=== PATIENT | male | born 1960 | race Two or more races ===

== ENCOUNTER 2017-03-16 18:19 | Emergency (ER) | payer MEDICAID ==
--- NOTE | 2017-03-16 18:52 | ER Document Report ---
ED General - General Chief Complaint: ETOH Abuse Stated Complaint: ETOH, LACERATIONS Time Seen by Provider: 03/16/17 18:33 Mode of Arrival: Stretcher Information source: Patient Notes: 56-year-old man who has a history of cirrhosis, alcohol abuse who is brought in by EMS because he was found wandering with multiple lacerations over his body. The patient states he was walking through an area with a lot of thorn bushes. He denies any assault. He denies any loss of consciousness. He denies any pain. TRAVEL OUTSIDE OF THE [place] IN LAST 30 DAYS: No - HPI Onset: Just prior to arrival Onset/Duration: Sudden Quality of pain: No pain Severity: None Pain Level: Denies Associated symptoms: None Exacerbated by: Denies Relieved by: Denies Similar symptoms previously: No Recently seen / treated by doctor: No - Related Data Allergies/Adverse Reactions: zolpidem Allergy (Intermediate, Verified 10/22/16 09:31) Hallucinations Penicillins Allergy (Verified 10/22/16 09:31) Rash Past Medical History - General Information source: Patient - Social History Smoking Status: Current Every Day Smoker Cigarette use (# per day): Yes Chew tobacco use (# tins/day): No Frequency of alcohol use: Heavy Drug Abuse: None Lives with: Family Family History: Reviewed & Not Pertinent, CAD Patient has suicidal ideation: No Patient has homicidal ideation: No - Past Medical History Cardiac Medical History: Denies: Hx Coronary Artery Disease, Hx Heart Attack, Hx Hypertension Pulmonary Medical History: Denies: Hx Asthma, Hx Bronchitis, Hx COPD, Hx Pneumonia Neurological Medical History: Denies: Hx Cerebrovascular Accident, Hx Seizures Endocrine Medical History: Reports: Hx Diabetes Mellitus Type 2 Renal/ Medical History: Denies: Hx Peritoneal Dialysis GI Medical History: Reports: Hx Cirrhosis, Hx Hepatitis Musculoskeltal Medical History: Denies Hx Arthritis Infectious Medical History: Reports: Hx Hepatitis Past Surgical History: Reports: Hx Orthopedic Surgery - left ankle, and left hand - Immunizations Hx Diphtheria, Pertussis, Tetanus Vaccination: No Review of Systems - Review of Systems Constitutional: denies: Chills, Fever EENT: No symptoms reported Cardiovascular: No symptoms reported Respiratory: No symptoms reported Gastrointestinal: No symptoms reported Genitourinary: No symptoms reported Male Genitourinary: No symptoms reported Musculoskeletal: See HPI Skin: See HPI Hematologic/Lymphatic: No symptoms reported Neurological/Psychological: No symptoms reported Physical Exam - Vital signs Vitals: Temp Pulse Resp BP Pulse Ox 98.2 F 73 12 118/80 89 L 03/16/17 18:27 03/16/17 18:27 03/16/17 18:27 03/16/17 18:27 03/16/17 18:27 Notes: Physical exam: GENERAL: This is a 56-year-old man is alert, there is significant alcohol on his breath. He is answering questions appropriately, but he does appear intoxicated. HEAD: Atraumatic, normocephalic. EYES: Pupils equal round and reactive to light, extraocular movements intact, sclera anicteric, conjunctiva are normal. ENT: TMs normal, nares patent, oropharynx clear without exudates. Moist mucous membranes. NECK: Normal range of motion, supple without lymphadenopathy or JVD. LUNGS: Breath sounds clear to auscultation bilaterally and equal. No wheezes rales or rhonchi. HEART: Regular rate and rhythm without murmurs, rubs or gallops. ABDOMEN: Soft, normoactive bowel sounds. No tenderness to palpation. No guarding, no rebound. No masses appreciated. EXTREMITIES: Normal range of motion, no pitting or edema. No clubbing or cyanosis. NEUROLOGICAL: Cranial nerves II through XII grossly intact. He does appear intoxicated, he is moving all extremities, no focal weakness. PSYCH: Normal mood, normal affect. SKIN: Patient has multiple abrasions to the upper extremities face and lower extremities. The abrasions are most pronounced on the lower extremities below the knee. Course - Re-evaluation Re-evalutation: 03/16/17 21:01 Note: I reviewed the labs with the patient. His alcohol level was not that bad. He is walking around the room without any difficulty. He is going to go home with family. He did have mild hypokalemia and I gave him some potassium. Ultimately I told him he should cut down on his drinking. He does not seem interested in that. His oxygen saturation when he walks around and is in the 90s. He is comfortable breathing and in no distress. 03/16/17 21:01 He is alert and oriented 3 and acting appropriate at this time. He appears competent. - Vital Signs Vital signs: Temp Pulse Resp BP Pulse Ox 98.2 F 73 12 118/80 89 L 03/16/17 18:27 03/16/17 18:27 03/16/17 18:27 03/16/17 18:27 03/16/17 18:27 - Laboratory Result Diagrams: 03/16/17 19:05 03/16/17 19:05 Laboratory results interpreted by me: 03/16/17 03/16/17 03/16/17 19:05 19:05 19:05 RBC 4.15 L Hgb 12.0 L Hct 35.8 L RDW 17.4 H Lymphocytes % 11.0 L Monocytes % 18.0 H Sodium 134.3 L Potassium 3.3 L Carbon Dioxide 15 L Anion Gap 21 H BUN 23 H Creatinine 1.99 H Est GFR ( Amer) 43 L Est GFR (Non-Af Amer) 35 L Calcium 10.3 H Total Bilirubin 3.4 H Direct Bilirubin 1.9 H AST 206 H ALT 118 H Alkaline Phosphatase 196 H Ammonia 34.8 H Total Protein 10.1 H Discharge - Discharge Clinical Impression: Multiple abrasions, Altered level of consciousness Condition: Stable Disposition: HOME, SELF-CARE Additional Instructions: Recommendations: You can apply bacitracin [id number] to the lower extremity abrasions. Keep them clean. As always, recommend you try and stop drinking altogether. Follow-up with Dr. Osullivan. Return to the OR for any problems.
[2017-03-16 19:19] LABS: ABSOLUTE LYMPHOCYTES (AUTO) 0.7 10^3/uL (0.5-4.7); ABSOLUTE MONOCYTES (AUTO) 1.1 10^3/uL (0.1-1.4); ABSOLUTE NEUT (AUTO) 4.4 10^3/uL (1.7-8.2); BASOPHILS % (AUTO) 0.7 % (0-2); EOSINOPHILS % (AUTO) 0.6 % (0-6); HEMATOCRIT 35.8 % (37.9-51.0); HGB HCT DIFFERENCE 0.2; MEAN CORPUSCULAR HEMOGLOBIN 28.9 pg (27.0-33.4); MEAN CORPUSCULAR HGB CONC 33.4 g/dL (32.0-36.0); MEAN CORPUSCULAR VOLUME 86 fl (80-97); RED BLOOD COUNT 4.15 10^6/uL (4.35-5.55); RED CELL DISTRIBUTION WIDTH 17.4 % (11.5-14.0); SEGMENTED NEUTROPHILS % (AUTO) 69.7 % (42-78); WHITE BLOOD COUNT 6.3 10^3/uL (4.0-10.5)
[2017-03-16 19:59] LABS: ALANINE AMINOTRANSFERASE 118 U/L (21-72); ALBUMIN 4.3 g/dL (3.5-5.0); ALCOHOL 80 mg/dL (NONE DETECTED); ALKALINE PHOSPHATASE 196 U/L (38-126); ASPARTATE AMINO TRANSFERASE 206 U/L (17-59); BILIRUBIN,DIRECT 1.9 mg/dL (0.0-0.4); BILIRUBIN,TOTAL 3.4 mg/dL (0.2-1.3); BLOOD UREA NITROGEN 23 mg/dL (7-20); CALCIUM 10.3 mg/dL (8.4-10.2); CARBON DIOXIDE 15 mmol/L (22-30); CHLORIDE 98 mmol/L (98-107); CREATININE RESULT 1.99 mg/dL (0.52-1.25); GLUCOSE 84 mg/dL (75-110); POTASSIUM 3.3 mmol/L (3.6-5.0); TOTAL PROTEIN 10.1 g/dL (6.3-8.2)
--- NOTE | 2017-03-16 19:59 | RADIOLOGY REPORT (SQ) ---
EXAM DESCRIPTION: CT HEAD WITHOUT COMPLETED DATE/TIME: 03/16/2017 7:00 pm REASON FOR STUDY: altered COMPARISON: None. TECHNIQUE: Axial images acquired through the brain without intravenous contrast. Images reviewed wi th bone, brain and subdural windows. Images stored on PACS. All CT scanners at this facility use dose modulation, iterative reconstruction, and/or weight based d osing when appropriate to reduce radiation dose to as low as reasonably achievable (ALARA). [facility]: Dose Right [facility]: CareDose [facility]: Dose Right [facility]: Teradose 4D [facility]: Tamion RADIATION DOSE: Up-to-date CT equipment and radiation dose reduction techniques were employed. CTDIv ol: 64.6 mGy. DLP: 1163 mGy-cm. mGy. LIMITATIONS: None. FINDINGS: VENTRICLES: Normal size and contour. CEREBRUM: No masses. No hemorrhage. No midline shift. Normal panda/white matter differentiation. N o evidence for acute infarction. CEREBELLUM: No masses. No hemorrhage. No alteration of density. No evidence for acute infarction. EXTRAAXIAL SPACES: No fluid collections. No masses. ORBITS AND GLOBE: No intra- or extraconal masses. Normal contour of globe without masses. CALVARIUM: No fracture. PARANASAL SINUSES: No fluid or mucosal thickening. SOFT TISSUES: No mass or hematoma. OTHER: No other significant finding. IMPRESSION: No acute intracranial findings. TECHNICAL DOCUMENTATION: JOB ID: [id number] Quality ID # [id number]: Final reports with documentation of one or more dose reduction techniques (e.g., Au tomated exposure control, adjustment of the mA and/or kV according to patient size, use of iterative reconstruction technique) 2010 [employer]- All Rights Reserved
[2017-03-16 20:29] LABS: SODIUM 134.3 mmol/L (137-145)
[2017-03-16 20:35] LABS: ANION GAP 21 (5-19)
[2017-03-16] MEDS ORDERED: POTASSIUM CHLORIDE 20 MEQ/15 ML UDCUP PO ONE (20:43)
[2017-03-16] MEDS ORDERED: THIAMINE HCL 100 MG TABLET PO ONE (20:44)
[2017-03-16 21:07] VITALS: BP 125/74
== END 2017-03-16 21:11 | disposition home or self-care (01) ==
LOC: ER 18:19
DX: S80.819A Abrasion, unspecified lower leg, initial encounter (principal); S40.819A Abrasion of unspecified upper arm, initial encounter; S00.81XA Abrasion of other part of head, initial encounter; X58.XXXA Exposure to other specified factors, initial encounter; E87.6 Hypokalemia; E11.9 Type 2 diabetes mellitus without complications; R41.82 Altered mental status, unspecified; F17.210 Nicotine dependence, cigarettes, uncomplicated; Z88.8 Allergy status to other drugs, medicaments and biological substances; Z88.0 Allergy status to penicillin
CPT/HCPCS: 99284; 36415; 80307; 82140; 85025; 80053; 70450; J3490 ×2

== ENCOUNTER 2017-05-26 09:08 | Day surgery (SDC) | payer MEDICAID ==
[~2017-05-26 09:08] MED LIST: PROPOFOL INJ 200 MG/20 ML VIAL IV ONE
[2017-05-26 10:23] VITALS: BP 131/84
--- NOTE | 2017-05-26 12:27 | Operative Report ---
Operative Report DATE OF SURGERY: 05/26/17 Operative Report: The risks, benefits and alternatives of the procedure including risks of bleeding, perforation requiring surgery are explained to the patient in detail and informed consent was obtained. Patient was taken back to the endoscopy suite and placed in the left, lateral decubital position. Timeout was called. Propofol medications administered. A rectal examination is done which did not reveal any masses, tears or fissures. An Olympus videoscope was inserted into the patient's rectum. The scope was then carefully advanced all the way to the cecum. The cecum was identified by the usual anatomical landmarks including the ileocecal valve as well as the appendiceal office. Photodocumentation was obtained. Scope was then sequentially pulled back via the various segments of the colon including the ascending colon, hepatic flexure, transverse colon, splenic flexure, descending colon finding to the rectosigmoid portions of the colon. Retroflexion maneuvers performed. PREOPERATIVE DIAGNOSIS: Rectal bleeding POSTOPERATIVE DIAGNOSIS: Mild proctitis noted status post biopsy. Internal hemorrhoids OPERATION: Colonoscopy with biopsy SURGEON: JARRELL WOLFF ANESTHESIA: LMAC TISSUE REMOVED OR ALTERED: Mucosa sample obtained COMPLICATIONS: None. ESTIMATED BLOOD LOSS: None. INTRAOPERATIVE FINDINGS: As noted above. PROCEDURE: Patient tolerated the procedure well. No immediate postprocedure complications are noted. Patient discharged in good condition. Discharge date 05/26/2017. Discharge diet: Regular. Discharge activity: Regular. 2-3 week follow-up to discuss findings. Patient is instructed call the office or proceed to the emergency room should there be any further problems or questions. We will wait on pathology.
== END 2017-05-26 10:25 | disposition home or self-care (01) ==
LOC: END 09:08
PROVIDERS: ATTEND Internal Medicine Gastroenterology
PROC: 0DBP8ZX Excision of Rectum, Via Natural or Artificial Opening Endoscopic, Diagnostic (ICD-10-PCS; principal; 2017-05-26 11:00)
DX: K62.89 Other specified diseases of anus and rectum (principal); K64.4 Residual hemorrhoidal skin tags; K62.5 Hemorrhage of anus and rectum; E11.9 Type 2 diabetes mellitus without complications; I10 Essential (primary) hypertension; E87.6 Hypokalemia; C22.0 Liver cell carcinoma; K74.60 Unspecified cirrhosis of liver; R18.8 Other ascites; Z79.899 Other long term (current) drug therapy
CPT/HCPCS: 45380; 88305 ×2; J2704; 810

== ENCOUNTER 2019-10-05 10:23 | Emergency (ER) | payer MEDICARE, MEDICAID ==
[2019-10-05 10:34] VITALS: BP 154/92
--- NOTE | 2019-10-05 11:17 | ER Document Report ---
ED Medical Screen (RME) - General Chief Complaint: Abdominal Pain Stated Complaint: ABDOMINAL PAIN Time Seen by Provider: 10/05/19 11:07 Primary Care Provider: PENG OSULLIVAN DO [Primary Care Provider] - Follow up as needed Notes: HPI: 59-year-old male with history of liver cancer who follows at [facility] presenting from PCP office Dr. Osullivan for evaluation and possible paracentesis. Patient has noticed increasing swelling of the abdomen over the last 2 weeks. No fever. Patient states he does get chemotherapy but has not had it in 7 months. Patient states that he was told that there were no beds for him to get p aracentesis done today so he was referred into the emergency department with orders I have greeted and performed a rapid initial assessment of this patient. A comprehensive ED assessment and evaluation of the patient, analysis of test results and completion of the medical decision making process will be conducted by additional ED providers PHYSICAL EXAMINATION: GENERAL: Well-appearing, well-nourished and in no acute distress. HEAD: Atraumatic, normocephalic. EYES: sclera anicteric, conjunctiva are normal. ENT: Moist mucous membranes. NECK: Normal range of motion LUNGS: Normal work of breathing HEART: 2+ radial pulses bilaterally ABD: limited by positioning for exam in triage. Minimal generalized tenderness on palpation EXTREMITIES: no pitting or edema. No cyanosis. NEUROLOGICAL: No focal neurological deficits. Moves all extremities spontaneously and on command. PSYCH: Normal mood, normal affect. SKIN: Warm, Dry, normal turgor, no rashes or lesions noted. Discussed with Dr. Russell, Attending. TRAVEL OUTSIDE OF THE [place] IN LAST 30 DAYS: No - Related Data Allergies/Adverse Reactions: zolpidem Allergy (Intermediate, Verified 05/26/17 08:58) Hallucinations Penicillins Allergy (Verified 05/26/17 08:58) Rash Past Medical History - Social History Frequency of alcohol use: None Drug Abuse: None - Past Medical History Cardiac Medical History: Denies: Hx Coronary Artery Disease, Hx Heart Attack, Hx Hypertension Pulmonary Medical History: Denies: Hx Asthma, Hx Bronchitis, Hx COPD, Hx Pneumonia Neurological Medical History: Denies: Hx Cerebrovascular Accident, Hx Seizures Endocrine Medical History: Reports: Hx Diabetes Mellitus Type 2 Renal/ Medical History: Denies: Hx Peritoneal Dialysis GI Medical History: Reports: Hx Cirrhosis, Hx Hepatitis Musculoskeltal Medical History: Denies Hx Arthritis Infectious Medical History: Reports: Hx Hepatitis Past Surgical History: Reports: Hx Orthopedic Surgery - left ankle, and left hand - Immunizations Hx Diphtheria, Pertussis, Tetanus Vaccination: No Physical Exam - Vital signs Vitals: Temp Pulse Resp BP Pulse Ox 98.2 F 70 16 154/92 H 99 10/05/19 10:33 10/05/19 10:33 10/05/19 10:33 10/05/19 10:33 10/05/19 10:33 Course - Vital Signs Vital signs: Temp Pulse Resp BP Pulse Ox 98.2 F 70 16 154/92 H 99 10/05/19 10:33 10/05/19 10:33 10/05/19 10:33 10/05/19 10:33 10/05/19 10:33 Doctor's Discharge - Discharge Referrals: PENG OSULLIVAN DO [Primary Care Provider] - Follow up as needed
[2019-10-05 12:32] LABS: INTERNATIONAL RATION (INR) 1.52; PARTIAL THROMBOPLASTIN TIME 33.8 SEC (23.5-35.8); PROTHROMBIN TIME 18.4 SEC (11.4-15.4)
[2019-10-05 12:42] LABS: ALBUMIN 2.9 g/dL (3.5-5.0); ALKALINE PHOSPHATASE 134 U/L (38-126); ANION GAP 7 (5-19); ASPARTATE AMINO TRANSFERASE 62 U/L (17-59); BILIRUBIN,DIRECT 0.4 mg/dL (0.0-0.4); BILIRUBIN,TOTAL 1.9 mg/dL (0.2-1.3); BLOOD UREA NITROGEN 15 mg/dL (7-20); CALCIUM 8.1 mg/dL (8.4-10.2); CARBON DIOXIDE 28 mmol/L (22-30); CHLORIDE 103 mmol/L (98-107); GLUCOSE 115 mg/dL (75-110); POTASSIUM 3.8 mmol/L (3.6-5.0); TOTAL PROTEIN 7.7 g/dL (6.3-8.2)
== END 2019-10-05 12:21 | disposition other institution (70) ==
LOC: ER 10:23
DX: R10.9 Unspecified abdominal pain (principal); C22.8 Malignant neoplasm of liver, primary, unspecified as to type; E11.9 Type 2 diabetes mellitus without complications; Z88.0 Allergy status to penicillin
CPT/HCPCS: 36415; 80053; 85610; 85730

== ENCOUNTER 2019-10-06 08:53 | Day surgery (SDC) | payer MEDICARE, MEDICAID ==
[~2019-10-06 08:53] MED LIST changes: +ALBUMIN HUMAN 25 GM/100 ML RTUINJ IV PRN; -PROPOFOL INJ 200 MG/20 ML VIAL IV ONE
[2019-10-06 09:48] LABS: HEMATOCRIT 25.9 % (37.9-51.0); HEMOGLOBIN 8.6 g/dL (13.5-17.0); MEAN CORPUSCULAR HEMOGLOBIN 29.8 pg (27.0-33.4); MEAN CORPUSCULAR VOLUME 90 fl (80-97); RED BLOOD COUNT 2.87 10^6/uL (4.35-5.55); RED CELL DISTRIBUTION WIDTH 17.6 % (11.5-14.0); WHITE BLOOD COUNT 2.3 10^3/uL (4.0-10.5)
[2019-10-06 10:13] LABS: PLATELET COUNT 75 10^3/uL (150-450)
--- NOTE | 2019-10-06 12:58 | RADIOLOGY REPORT (SQ) ---
EXAM DESCRIPTION: U/S ABD PARACENTESIS COMPLETED DATE/TIME: 10/06/2019 12:50 pm REASON FOR STUDY: ASCITES COMPARISON 06/05/2016 LIMITATIONS: None. PROCEDURE: After obtaining informed consent, the patient was brought to the ultrasound suite. The p rocedure was performed with the patient on a gurney. Ultrasound was used to identify a prominent poc ket of ascites in the right lower quadrant. An appropriate access site was selected. The patient wa s prepped and draped in usual sterile fashion. The access site was anesthetized with 10 mL 1% lidoc rodrick. A Mptg-O-Iejltuke needle was advanced into the fluid. After aspiration of fluid the needle, t he catheter was advanced off the needle into the fluid. A total of 2,200 mL of clear, straw-colored fluid was removed. The patient tolerated the procedure well left the department in satisfactory condi tion. IMPRESSION: Successful ultrasound-guided paracentesis COMMENT: Patient medication list reviewed: Yes- Quality ID# [id number]:Eligible professional attests to doc umenting in the medical record they obtained, updated, or reviewed the patient's current medications. TECHNICAL DOCUMENTATION: JOB ID: [id number] 2010 [employer]- All Rights Reserved Reading location - IP/workstation name: [email or web address]
[2019-10-06 13:22] VITALS: BP 148/90
== END 2019-10-06 13:15 | disposition home or self-care (01) ==
LOC: RAD 08:53
PROVIDERS: ATTEND Family Medicine
DX: Z79.899 Other long term (current) drug therapy (principal); R18.8 Other ascites; Z88.0 Allergy status to penicillin
CPT/HCPCS: 36415; 85027; 49083; P9047

== ENCOUNTER 2020-03-01 09:03 | Inpatient (IN) | payer MEDICARE, MEDICAID ==
[2020-03-01] MEDS ORDERED: ONDANSETRON HCL INJ/PF 4 MG/2 ML SDV IV ONE (09:44)
[2020-03-01] MEDS ORDERED: MORPHINE SULFATE 10 MG/ML INJ IV ONE (09:44)
[2020-03-01 10:19] LABS: HEMATOCRIT 22.9 % (37.9-51.0); MEAN CORPUSCULAR HEMOGLOBIN 31.2 pg (27.0-33.4); MEAN CORPUSCULAR HGB CONC 33.9 g/dL (32.0-36.0); MEAN CORPUSCULAR VOLUME 92 fl (80-97); PLATELET COUNT 168 10^3/uL (150-450); RED BLOOD COUNT 2.49 10^6/uL (4.35-5.55); RED CELL DISTRIBUTION WIDTH 19.4 % (11.5-14.0); WHITE BLOOD COUNT 7.6 10^3/uL (4.0-10.5)
[2020-03-01 10:24] LABS: APPEARANCE,URINE SLIGHTLY-CLOUDY; BILIRUBIN,URINE NEGATIVE (NEGATIVE); COLOR,URINE AMBER; GLUCOSE, URINE NEGATIVE (NEGATIVE); KETONES,URINE NEGATIVE (NEGATIVE); LEUKOCYTE ESTERASE,URINE LARGE (NEGATIVE); NITRITE,URINE NEGATIVE (NEGATIVE); PROTEIN,URINE NEGATIVE (NEGATIVE)
[2020-03-01 10:59] LABS: HEMOGLOBIN 7.8 g/dL (13.5-17.0)
[2020-03-01 11:00] LABS: ABSOLUTE LYMPHOCYTES# (MANUAL) 0.6 10^3/uL (0.5-4.7); ABSOLUTE MONOCYTES # (MANUAL) 0.4 10^3/uL (0.1-1.4); BASOPHILS % (MANUAL) 0 % (0-2); EOSINOPHILS % (MANUAL) 3 % (0-6); LYMPHOCYTES % (MANUAL) 8 % (13-45); MONOCYTES % (MANUAL) 5 % (3-13); SEGMENTED NEUTROPHILS % (MAN) 84 % (42-78); TOTAL CELLS COUNTED 100
[2020-03-01 11:02] LABS: ANISOCYTOSIS 2+; OVALOCYTES SLIGHT; PLATELET COMMENT ADEQUATE; POIKILOCYTOSIS 1+; POLYCHROMASIA SLIGHT; TEAR DROP CELLS SLIGHT
[2020-03-01] MEDS ORDERED: LEVOFLOXACIN 750 MG/D5W RTU 750 MG/150 ML RTUPB IV ONE (11:11)
[2020-03-01 11:30] LABS: ALBUMIN 3.1 g/dL (3.5-5.0); ALKALINE PHOSPHATASE 134 U/L (38-126); ANION GAP 10 (5-19); ASPARTATE AMINO TRANSFERASE 147 U/L (17-59); BILIRUBIN,DIRECT 4.9 mg/dL (0.0-0.4); BILIRUBIN,TOTAL 6.8 mg/dL (0.2-1.3); BLOOD UREA NITROGEN 27 mg/dL (7-20); CALCIUM 7.5 mg/dL (8.4-10.2); CARBON DIOXIDE 33 mmol/L (22-30); CHLORIDE 88 mmol/L (98-107); GLUCOSE 120 mg/dL (75-110); TOTAL PROTEIN 8.4 g/dL (6.3-8.2)
[2020-03-01 11:33] LABS: POTASSIUM 2.6 mmol/L (3.6-5.0)
--- NOTE | 2020-03-01 12:46 | RADIOLOGY REPORT (SQ) ---
EXAM DESCRIPTION: CT ABD/PELVIS WITH IV ONLY IMAGES COMPLETED DATE/TIME: 03/01/2020 12:06 pm REASON FOR STUDY: abd pain/hx liver cancer COMPARISON: 05/29/2016 TECHNIQUE: CT scan of the abdomen and pelvis performed using helical scanning technique with dynamic intravenous contrast injection. No oral contrast. Images reviewed with lung, soft tissue, and bone windows. Reconstructed coronal and sagittal MPR images reviewed. Delayed images for evaluation of the urinary system also acquired. All images stored on PACS. All CT scanners at this facility use dose modulation, iterative reconstruction, and/or weight based d osing when appropriate to reduce radiation dose to as low as reasonably achievable (ALARA). [facility]: Dose Right [facility]: CareDose [facility]: Dose Right [facility]: Teradose 4D [facility]: [employer] CONTRAST TYPE AND DOSE: contrast/concentration: Isovue 350.00 mmol/ml; Total Contrast Delivered: 79. 0 ml; Total Saline Delivered: 68.0 ml RENAL FUNCTION: BUN 27, creatinine 1.74 RADIATION DOSE: CT Rad equipment meets quality standard of care and radiation dose reduction techniq ues were employed. CTDIvol: 6.1 - 8.1 mGy. DLP: 740 mGy-cm.. LIMITATIONS: None. FINDINGS: LOWER CHEST: No significant findings. No nodules or infiltrates. LIVER: Diffuse heterogeneous attenuation throughout the liver with a 4.7 x 5.2 cm mass off the right lobe superiorly. Prior CT this measured 2.5 cm in greatest dimensions. 2nd 5.8 cm mass off the infe rior posterior right lobe of liver. There is a 3.4 cm lesion in the left lobe posteriorly in a 3.1 c m lesion in the inferior right lobe. There is nodular contour. There is perihepatic fluid. Numerou s smaller lesions are identified. Findings are suspicious was multifocal hepatoma all the regenerati ng nodules in the setting of cirrhosis cannot be excluded. SPLEEN: There is splenomegaly. The spleen measures over 15 cm in cranial caudal dimensions. PANCREAS: No masses. No significant calcifications. No adjacent inflammation or peripancreatic fluid collections. Pancreatic duct not dilated. GALLBLADDER: No identified stones by CT criteria. No inflammatory changes to suggest cholecystitis. ADRENAL GLANDS: No significant masses or asymmetry. RIGHT KIDNEY AND URETER: No solid masses. No significant calcifications. No hydronephrosis or hyd roureter. LEFT KIDNEY AND URETER: No solid masses. No significant calcifications. No hydronephrosis or hydr oureter. AORTA AND VESSELS: No aneurysm. No dissection. Renal arteries, SMA, celiac without stenosis. RETROPERITONEUM: No retroperitoneal adenopathy, hemorrhage or masses. BOWEL AND PERITONEAL CAVITY: Small to moderate volume ascites. Slight thickening and the ascending c olonic wall no obstruction. APPENDIX: Normal. PELVIS: Free fluid. No masses. ABDOMINAL WALL: No masses. No hernias. BONES: No significant or acute findings. OTHER: No other significant finding. IMPRESSION: 1. Cirrhotic liver with multiple heterogeneous masses as described. These could repres ent regenerating nodules although multifocal hepatoma cannot be excluded. The lesions have increased in size when compared to prior CT dated 05/29/2016. There is a 5.8 cm lesion off the right lobe pos teriorly and a 4.7 x 5.2 cm lesion off the right lobe anteriorly near the diaphragm. Numerous smalle r lesions are identified. 2. Moderate volume ascites. 3. Splenomegaly 4. Slight thickening of the ascending colonic wall. This is nonspecific and may be secondary to the ascites. This segment of colon with also nondistended with extension weight is findings. TECHNICAL DOCUMENTATION: JOB ID: [id number] Quality ID # [id number]: Final reports with documentation of one or more dose reduction techniques (e.g., Au tomated exposure control, adjustment of the mA and/or kV according to patient size, use of iterative reconstruction technique) 2010 [employer]- All Rights Reserved Reading location - IP/workstation name: [email or web address]
--- NOTE | 2020-03-01 13:53 | ER Document Report ---
ED General - General Chief Complaint: Abdominal Pain Stated Complaint: ABDOMINAL PAIN Time Seen by Provider: 03/01/20 09:26 Primary Care Provider: PENG TONY DO [Primary Care Provider] - Follow up as needed Information source: Patient TRAVEL OUTSIDE OF THE [place] IN LAST 30 DAYS: No - HPI Notes: Patient comes in complaining of diffuse abdominal pain and inability to have a bowel movement. He states is been 3 to 4 days since he has had a bowel move ment. He states last week he had black tarry stool and now he has constipation. He also states he has diffuse crampy and sharp abdominal pain. Is worse with movement and better with rest. It radiates throughout his abdomen. He denies any vomiting or fevers. He states he does have a history of cancer although he cannot tell me exactly what kind. He states he is followed at [facility] for this cancer. He denies any problems with urination. - Related Data Allergies/Adverse Reactions: zolpidem Allergy (Intermediate, Verified 03/01/20 09:15) Hallucinations Penicillins Allergy (Verified 03/01/20 09:15) Rash Home Medications: pain medication. oxycodone. metoprolol. stomach Past Medical History - Social History Smoking Status: Never Smoker Chew tobacco use (# tins/day): No Frequency of alcohol use: Social Drug Abuse: None Family History: Reviewed & Not Pertinent, CAD Patient has homicidal ideation: No - Past Medical History Cardiac Medical History: Denies: Hx Coronary Artery Disease, Hx Heart Attack, Hx Hypertension Pulmonary Medical History: Denies: Hx Asthma, Hx Bronchitis, Hx COPD, Hx Pneumonia Neurological Medical History: Denies: Hx Cerebrovascular Accident, Hx Seizures Endocrine Medical History: Reports: Hx Diabetes Mellitus Type 2 Renal/ Medical History: Denies: Hx Peritoneal Dialysis GI Medical History: Reports: Hx Cirrhosis, Hx Hepatitis Musculoskeletal Medical History: Denies Hx Arthritis Infectious Medical History: Reports: Hx Hepatitis Past Surgical History: Reports: Hx Abdominal Surgery - hernia repair, Hx Orthopedic Surgery - left ankle and left hand - Immunizations Hx Diphtheria, Pertussis, Tetanus Vaccination: No Review of Systems - Review of Systems Constitutional: denies: Chills, Fever Cardiovascular: denies: Chest pain, Palpitations Respiratory: denies: Cough, Short of breath -: Yes All other systems reviewed and negative Physical Exam - Vital signs Vitals: Temp Pulse Resp BP Pulse Ox 98.9 F 98 16 108/95 H 96 03/01/20 09:06 03/01/20 09:06 03/01/20 09:06 03/01/20 09:06 03/01/20 09:06 Interpretation: Normal - General General appearance: Alert - HEENT Head: Normocephalic, Atraumatic Eyes: Normal, Scleral icterus Pupils: PERRL - Respiratory Respiratory status: No respiratory distress Chest status: Nontender Breath sounds: Normal Chest palpation: Normal - Cardiovascular Rhythm: Regular Heart sounds: Normal auscultation Murmur: No - Abdominal Inspection: Obese Distension: Distended Bowel sounds: Hypoactive Tenderness: Tender - Mild to moderate diffuse without surgical signs - Back Back: Normal, Nontender - Extremities General upper extremity: Normal inspection, Nontender, Normal color, Normal ROM, Normal temperature General lower extremity: Normal inspection, Nontender, Normal color, Normal ROM, Normal temperature, Normal weight bearing. No: Speedy's sign - Neurological Neuro grossly intact: Yes Cognition: Normal Orientation: AAOx4 Stafford Coma Scale Eye Opening: Spontaneous Stafford Coma Scale Verbal: Oriented Stafford Coma Scale Motor: Obeys Commands Stafford Coma Scale Total: 15 Speech: Normal Motor strength normal: LUE, RUE, LLE, RLE Sensory: Normal - Psychological Associated symptoms: Normal affect, Normal mood - Skin Skin Temperature: Warm Skin Moisture: Dry Skin Color: Jaundiced Course - Re-evaluation Re-evalutation: 03/01/20 13:52 Patient presents with abdominal pain and constipation. Patient has multiple abnormalities. He has hypokalemia. He has anemia. He has a urinary tract infection. He also has new lesions in his liver with ascites. I have discussed this case with the hospitalist and patient be admitted for further evaluation. - Vital Signs Vital signs: Temp Pulse Resp BP Pulse Ox 98.7 F 84 16 128/81 H 100 03/01/20 13:07 03/01/20 13:07 03/01/20 09:06 03/01/20 13:07 03/01/20 13:07 - Laboratory Result Diagrams: 03/01/20 09:45 03/01/20 09:45 Laboratory results interpreted by me: 03/01/20 03/01/20 03/01/20 09:45 09:45 09:45 RBC 2.49 L Hgb 7.8 L Hct 22.9 L RDW 19.4 H Seg Neuts % (Manual) 84 H Lymphocytes % (Manual) 8 L Sodium 131.2 L Potassium 2.6 L* Chloride 88 L Carbon Dioxide 33 H BUN 27 H Creatinine 1.74 H Est GFR ( Amer) 49 L Est GFR (MDRD) Non-Af 41 L Glucose 120 H Calcium 7.5 L Total Bilirubin 6.8 H Direct Bilirubin 4.9 H AST 147 H Alkaline Phosphatase 134 H Total Protein 8.4 H Albumin 3.1 L Urine Urobilinogen 4.0 H Ur Leukocyte Esterase LARGE H - Diagnostic Test Radiology reviewed: Image reviewed, Reports reviewed Discharge - Discharge Clinical Impression: Hypokalemia, Lesion of liver UTI (urinary tract infection) Qualifiers: Urinary tract infection type: site unspecified Hematuria presence: without hematuria Qualified Code(s): N39.0 - Urinary tract infection, site not specified Cirrhosis Qualifiers: Hepatic cirrhosis type: alcoholic cirrhosis Ascites presence: with ascites Qualified Code(s): K70.31 - Alcoholic cirrhosis of liver with ascites Anemia Qualifiers: Anemia type: iron deficiency Iron deficiency anemia type: chronic blood loss Qualified Code(s): D50.0 - Iron deficiency anemia secondary to blood loss (chronic) Condition: Serious Disposition: ADMITTED INPATIENT Admitting Provider: Agnieszka (Hospitalist) Unit Admitted: Medical Floor Referrals: PENG TONY DO [Primary Care Provider] - Follow up as needed
[2020-03-01] MEDS: POTASSI CL 20 MEQ/50 ML RIDER 20 MEQ/50 ML RTUPB IV SCH ×3 (14:13→17:25)
--- NOTE | 2020-03-01 15:38 | PDOC H&P ---
History of Present Illness Admission Date/PCP: 03/01/20 14:14 PENG TONY DO Patient complains of: Black tarry stool last week. Increasing abdominal pain and bloating. History of Present Illness: TATUM GASTON is a 59 year old male who was diagnosed with liver cancer approximately 5 years ago. He had been treated by an oncologist at [facility] and has a follow-up appointment this week. Unfortunately he had black tarry stool last week. He was urinating without difficulty. The black tarry stools stopped but he states that he has not been able to pass any stool for 3 to 4 days and when he eats it feels like it is getting stuck in his abdomen. He states that he has not passed any gas either. He had a ventral hernia repair in 2016. He has not had any complications since. His hemoglobin is 7.8. Total bilirubin is 6.8. Potassium is 2.8. BUN and creatinine are elevated at 27 and 1.74. The patient will be admitted for GI bleed and abdominal pain as well as acute kidney injury and electrolyte abnormalities. He received IV fluids and we will replete his electrolytes. I have also placed a consult for surgery to obtain their opinion regarding his GI bleed and abdomen. Past Medical History Cardiac Medical History: Denies: Coronary Artery Disease, Myocardial Infarction, Hypertension Pulmonary Medical History: Denies: Asthma, Bronchitis, Chronic Obstructive Pulmonary Disease (COPD), Pneumonia Neurological Medical History: Denies: Seizures Endocrine Medical History: Reports: Diabetes Mellitus Type 2 Malignancy Medical History: Reports: Liver Cancer GI Medical History: Reports: Cirrhosis, Hepatitis Musculoskeltal Medical History: Denies: Arthritis Hematology: Denies: Anemia Past Surgical History Past Surgical History: Reports: Orthopedic Surgery - left ankle and left hand Social History Information Source: Patient Lives with: Alone Smoking Status: Never Smoker Electronic Cigarette use?: No Frequency of Alcohol Use: Rare Hx Recreational Drug Use: Yes Drugs: Marijuana Hx Prescription Drug Abuse: No - Advance Directive Resuscitation Status: Full Code Family History Family History: CAD, Hypertension Parental Family History Reviewed: Yes Children Family History Reviewed: Yes Sibling(s) Family History Reviewed.: Yes Medication/Allergy Home Medications: Hydroxyzine HCl [Atarax 25 mg Tablet] 25 mg PO TIDP PRN 04/25/16 Oxycodone HCl 10 mg PO Q6HP PRN 10/22/16 Metoprolol Succinate [Toprol Xl 50 mg Tab.sr] 50 mg PO DAILY 05/26/17 Fluoxetine HCl 10 mg PO DAILY 03/01/20 Omeprazole 20 mg PO DAILY 03/01/20 Zolpidem Tartrate [Ambien] 10 mg PO QHS 03/01/20 Allergies/Adverse Reactions: zolpidem Allergy (Intermediate, Verified 03/01/20 09:15) Hallucinations Penicillins Allergy (Verified 03/01/20 09:15) Rash Review of Systems All systems: reviewed and no additional remarkable complaints except as stated Constitutional: PRESENT: weight loss, other - Poor appetite Gastrointestinal: PRESENT: abdominal pain, bloating Integumentary: PRESENT: pruritus Psychiatric: PRESENT: depression Physical Exam Vital Signs: Temp Pulse Resp BP Pulse Ox 98.7 F 84 16 128/81 H 100 03/01/20 13:07 03/01/20 13:07 03/01/20 09:06 03/01/20 13:07 03/01/20 13:07 Intake & Output 02/29/20 03/01/20 03/02/20 06:59 06:59 06:59 Intake Total 200 Balance 200 Weight 69.4 kg General appearance: PRESENT: cooperative, mild distress, well-developed. ABSENT: disheveled Head exam: PRESENT: atraumatic, normocephalic Eye exam: PRESENT: conjunctiva pale, EOMI, PERRLA, scleral icterus Ear exam: PRESENT: normal external ear exam. ABSENT: bleeding, drainage Mouth exam: PRESENT: dry mucosa, tongue midline Teeth exam: ABSENT: poor dentation Neck exam: PRESENT: full ROM. ABSENT: carotid bruit, JVD, lymphadenopathy, thyromegaly, tracheostomy Respiratory exam: PRESENT: clear to auscultation vikki, symmetrical, unlabored. ABSENT: rales, rhonchi, tachypnea, wheezes Cardiovascular exam: PRESENT: RRR, +S1, +S2. ABSENT: bradycardia, diastolic murmur, irregular rhythm, systolic murmur, tachycardia GI/Abdominal exam: PRESENT: distended, normal bowel sounds, soft, tenderness - Diffuse nonspecific tenderness in the mid abdomen. ABSENT: guarding, rigid Rectal exam: PRESENT: deferred Gentrourinary exam: ABSENT: indwelling catheter Extremities exam: PRESENT: full ROM. ABSENT: joint swelling, pedal edema Musculoskeletal exam: PRESENT: ambulatory, normal inspection. ABSENT: deformity, dislocation Neurological exam: PRESENT: alert, awake, oriented to person, oriented to place, oriented to time, oriented to situation, CN II-XII grossly intact. ABSENT: altered, motor sensory deficit Psychiatric exam: PRESENT: appropriate affect. ABSENT: agitated, anxious Focused psych exam: ABSENT: delusional, paranoid, restlessness Skin exam: PRESENT: dry, jaundice, warm. ABSENT: erythema, rash Results Laboratory Results: 03/01/20 09:45 03/01/20 09:45 03/01/20 03/01/20 03/01/20 09:45 09:45 09:45 WBC 7.6 RBC 2.49 L Hgb 7.8 L Hct 22.9 L MCV 92 MCH 31.2 MCHC 33.9 RDW 19.4 H Plt Count 168 Seg Neutrophils % Not Reportable Sodium 131.2 L Potassium 2.6 L* Chloride 88 L Carbon Dioxide 33 H Anion Gap 10 BUN 27 H Creatinine 1.74 H Est GFR ( Amer) 49 L Glucose 120 H Calcium 7.5 L Total Bilirubin 6.8 H AST 147 H Alkaline Phosphatase 134 H Total Protein 8.4 H Albumin 3.1 L Lipase 198.9 Urine Color LESLY Urine Appearance SLIGHTLY-CLOUDY Urine pH 6.0 Ur Specific [place] 1.010 Urine Protein NEGATIVE Urine Glucose (UA) NEGATIVE Urine Ketones NEGATIVE Urine Blood NEGATIVE Urine Nitrite NEGATIVE Ur Leukocyte Esterase LARGE H Urine WBC (Auto) 39 Urine RBC (Auto) 2 Blood Type Antibody Screen 03/01/20 09:45 WBC RBC Hgb Hct MCV MCH MCHC RDW Plt Count Seg Neutrophils % Sodium Potassium Chloride Carbon Dioxide Anion Gap BUN Creatinine Est GFR ( Amer) Glucose Calcium Total Bilirubin AST Alkaline Phosphatase Total Protein Albumin Lipase Urine Color Urine Appearance Urine pH Ur Specific [place] Urine Protein Urine Glucose (UA) Urine Ketones Urine Blood Urine Nitrite Ur Leukocyte Esterase Urine WBC (Auto) Urine RBC (Auto) Blood Type O POSITIVE Antibody Screen NEGATIVE Impressions: Abdomen/Pelvis CT 03/01/20 09:41 IMPRESSION: 1. Cirrhotic liver with multiple heterogeneous masses as described. These could represent regenerating nodules although multifocal hepatoma cannot be excluded. The lesions have increased in size when compared to prior CT dated 05/29/2016. There is a 5.8 cm lesion off the right lobe poste riorly and a 4.7 x 5.2 cm lesion off the right lobe anteriorly near the diaphragm. Numerous smaller lesions are identified. 2. Moderate volume ascites. 3. Splenomegaly 4. Slight thickening of the ascending colonic wall. This is nonspecific and may be secondary to the ascites. This segment of colon with also nondistended with extension weight is findings. Assessment and Plan - Diagnosis (1) GI bleed Qualifiers: GI bleed type/associated pathology: unspecified gastrointestinal hemorrhage type Qualified Code(s): K92.2 - Gastrointestinal hemorrhage, unspecified Is this a current diagnosis for this admission?: Yes Plan: Likely from an upper GI source. Surgery is consulting. The patient may likely need an upper endoscopy. With his liver disease, esophageal varices are a consideration. (2) Acute blood loss anemia Is this a current diagnosis for this admission?: Yes Plan: Hemoglobin is 7.5. The patient is comfortable. We agreed to check hemoglobin later tonight and if it is lower then he will need a transfusion. (3) Melena Is this a current diagnosis for this admission?: Yes Plan: Patient reports dark tarry stools last week. He states that he has not had any black stools or any output per rectum for the last 2 to 3 days. (4) Neoplasm, liver Is this a current diagnosis for this admission?: Yes Plan: Initially diagnosed 4 to 5 years ago at [facility]. Unfortunately today CT scan showed that the lesions were considerably larger than the last study. He did have an appointment scheduled for the end of this week at [facility] but this will likely need to be postponed. (5) Ascites Qualifiers: Ascites type: due to alcoholic cirrhosis Qualified Code(s): K70.31 - Alcoholic cirrhosis of liver with ascites Is this a current diagnosis for this admission?: Yes Plan: Fluid noted imaging study. On levofloxacin for possible SBP. May need to start spironolactone or furosemide. (6) Hyponatremia Is this a current diagnosis for this admission?: Yes Plan: Possibly related to liver failure with ascites. Will monitor closely. May need to consider Aldactone and fluid restriction (7) Hypocalcemia Is this a current diagnosis for this admission?: Yes Plan: We will supplement calcium via intravenous today and change to oral potassium supplement in 1 or 2 days. (8) Hypokalemia Is this a current diagnosis for this admission?: Yes Plan: Replete with oral and IV potassium. Monitor electrolytes closely. (9) Acute renal failure Qualifiers: Acute renal failure type: unspecified Qualified Code(s): N17.9 - Acute kidney failure, unspecified Is this a current diagnosis for this admission?: Yes Plan: We will treat with IV fluids. Patient does have ascites so we will need to monitor fluid balance closely. (10) UTI (urinary tract infection) Qualifiers: Urinary tract infection type: acute cystitis Hematuria presence: without hematuria Qualified Code(s): N30.00 - Acute cystitis without hematuria Is this a current diagnosis for this admission?: Yes Plan: Urinalysis strongly suggestive of infection. Culture has been ordered but has not been collected yet. Patient is on levofloxacin. (11) Cirrhosis Qualifiers: Hepatic cirrhosis type: alcoholic cirrhosis Ascites presence: with ascites Qualified Code(s): K70.31 - Alcoholic cirrhosis of liver with ascites Is this a current diagnosis for this admission?: Yes Plan: The patient's AST to ALT ratio is 3.8. CT scan revealed cirrhotic liver. Ascites is present. As noted above we may need to initiate Spironolactone or other diuretic. Will monitor liver function. (12) Coagulopathy Is this a current diagnosis for this admission?: Yes Plan: The patient's INR is 1.97. He is auto anticoagulated due to his liver disease. If continued bleeding is noted he may need transfusion of fresh frozen plasma. - Time Time Spent with patient: 35 or more minutes Medications reviewed and adjusted accordingly: Yes Anticipated discharge: Other - Possibly home versus transfer to tertiary care hospital Within: Other - Unknown at this time - Inpatient Certification Based on my medical assessment, after consideration of the patient's comorbidities, presenting symptoms, or acuity I expect that the services needed warrant INPATIENT care.: Yes I certify that my determination is in accordance with my understanding of Medicare's requirements for reasonable and necessary INPATIENT services [42 CFR 412.3e].: Yes Medical Necessity: Significant Comorbidiites Make Outpatient Treatment Too Risky, Need Close Monitoring Due to Risk of Patient Decompensation, Need For IV Fluids, Need for Pain Control, Need for IV Antibiotics Post Hospital Care: D/C Cut To Length Operator Documentation
[2020-03-01] MEDS ORDERED: ACETAMINOPHEN 325 MG TABLET PO PRN ×2 (15:39→20:52)
[2020-03-01] MEDS ORDERED: PROMETHAZINE HCL INJ 25 MG/1 ML VIAL IV PRN (15:39)
[2020-03-01] MEDS ORDERED: ACETAMINOPHEN 650 MG SUPP.RECT PR PRN (15:39)
[2020-03-01] MEDS ORDERED: (PENDING PHARMACY ID) (Hydroxyzine Hcl [Atarax 25 Mg Tablet] 25 MG) PO PRN (15:55)
[2020-03-01] MEDS ORDERED: MORPHINE SULFATE 10 MG/ML INJ IV PRN (15:57)
[2020-03-01] MEDS ORDERED: HYDROXYZINE HCL 10 MG TABLET PO PRN (16:00)
--- NOTE | 2020-03-01 18:50 | PDOC CONSULTATION ---
Consultation Consult Date: 03/01/20 Provider Consulted: TATUM BALLESTEROS Consult reason:: Upper GI bleed History of Present Illness Admission Date/PCP: 03/01/20 14:14 PENG TONY DO History of Present Illness: TATUM GASTON is a 59 year old male with known history of cirrhosis and hepatoma and being followed up at [facility]. Patient used to be a heavy drinker. He was diagnosed to have cirrhosis and hepatoma about 5 years ago. He claims he had sixpack of beer about 1-1/2 weeks ago. About 8 days ago noted to have melena daily with coffee-ground vomitus x2 until about 4 days ago when suddenly stopped having a bowel movement. He did have some bloating sensation. He claims he was seen in the x-ray department for a paracentesis about 6 weeks ago. He claims he had a upper and lower endoscopy by Dr. Garcia 2 years ago and he was told both tests were normal. Past Medical History Cardiac Medical History: Denies: Coronary Artery Disease, Myocardial Infarction, Hypertension Pulmonary Medical History: Denies: Asthma, Bronchitis, Chronic Obstructive Pulmonary Disease (COPD), Pneumonia Neurological Medical History: Denies: Seizures Endocrine Medical History: Reports: Diabetes Mellitus Type 2 GI Medical History: Reports: Cirrhosis, Hepatitis Musculoskeltal Medical History: Denies: Arthritis Psychiatric Medical History: Denies: Depression Hematology: Denies: Anemia Past Surgical History Past Surgical History: Reports: Orthopedic Surgery - left ankle and left hand, Other - Repair of ventral hernia with mesh in June 2017 at [place] Social History Smoking Status: Never Smoker Electronic Cigarette use?: No Frequency of Alcohol Use: Rare - Used to be heavy alcohol drinker until about 5 years ago Hx Recreational Drug Use: No Hx Prescription Drug Abuse: No Family History Family History: Reviewed & Not Pertinent, CAD Parental Family History Reviewed: Yes Children Family History Reviewed: No Sibling(s) Family History Reviewed.: No Medication/Allergy Home Medications: Hydroxyzine HCl [Atarax 25 mg Tablet] 25 mg PO TIDP PRN 04/25/16 Oxycodone HCl 10 mg PO Q6HP PRN 10/22/16 Metoprolol Succinate [Toprol Xl 50 mg Tab.sr] 50 mg PO DAILY 05/26/17 Fluoxetine HCl 10 mg PO DAILY 03/01/20 Omeprazole 20 mg PO DAILY 03/01/20 Zolpidem Tartrate [Ambien] 10 mg PO QHS 03/01/20 Allergies/Adverse Reactions: zolpidem Allergy (Intermediate, Verified 03/01/20 09:15) Hallucinations Penicillins Allergy (Verified 03/01/20 09:15) Rash Review of Systems Constitutional: PRESENT: as per HPI, other - Denies fever chills Gastrointestinal: PRESENT: bloating, coffee ground emesis, melena Physical Exam Vital Signs: Temp Pulse Resp BP Pulse Ox 98.4 F 83 16 143/85 H 100 03/01/20 16:03 03/01/20 16:03 03/01/20 16:03 03/01/20 16:03 03/01/20 16:03 Intake & Output 02/29/20 03/01/20 03/02/20 06:59 06:59 06:59 Intake Total 250 Balance 250 Weight 68.8 kg General appearance: PRESENT: no acute distress Head exam: PRESENT: atraumatic Mouth exam: PRESENT: moist Neck exam: PRESENT: full ROM Respiratory exam: PRESENT: clear to auscultation vikki Cardiovascular exam: PRESENT: RRR Pulses: PRESENT: normal radial pulses Vascular exam: PRESENT: normal capillary refill GI/Abdominal exam: PRESENT: ascites, tenderness - Mild tenderness at the distal scar in the abdomen. No definite hernia recurrence noted Rectal exam: PRESENT: deferred Extremities exam: PRESENT: full ROM Musculoskeletal exam: PRESENT: ambulatory Neurological exam: PRESENT: alert, oriented to person, oriented to place, oriented to time, oriented to situation Psychiatric exam: PRESENT: appropriate affect Skin exam: PRESENT: normal color, warm Results Laboratory Results: 03/01/20 09:45 03/01/20 09:45 03/01/20 03/01/20 03/01/20 09:45 09:45 09:45 WBC 7.6 RBC 2.49 L Hgb 7.8 L Hct 22.9 L MCV 92 MCH 31.2 MCHC 33.9 RDW 19.4 H Plt Count 168 Seg Neutrophils % Not Reportable Sodium 131.2 L Potassium 2.6 L* Chloride 88 L Carbon Dioxide 33 H Anion Gap 10 BUN 27 H Creatinine 1.74 H Est GFR ( Amer) 49 L Glucose 120 H Calcium 7.5 L Total Bilirubin 6.8 H AST 147 H Alkaline Phosphatase 134 H Total Protein 8.4 H Albumin 3.1 L Lipase 198.9 Urine Color LESLY Urine Appearance SLIGHTLY-CLOUDY Urine pH 6.0 Ur Specific [place] 1.010 Urine Protein NEGATIVE Urine Glucose (UA) NEGATIVE Urine Ketones NEGATIVE Urine Blood NEGATIVE Urine Nitrite NEGATIVE Ur Leukocyte Esterase LARGE H Urine WBC (Auto) 39 Urine RBC (Auto) 2 Blood Type Antibody Screen 03/01/20 09:45 WBC RBC Hgb Hct MCV MCH MCHC RDW Plt Count Seg Neutrophils % Sodium Potassium Chloride Carbon Dioxide Anion Gap BUN Creatinine Est GFR ( Amer) Glucose Calcium Total Bilirubin AST Alkaline Phosphatase Total Protein Albumin Lipase Urine Color Urine Appearance Urine pH Ur Specific [place] Urine Protein Urine Glucose (UA) Urine Ketones Urine Blood Urine Nitrite Ur Leukocyte Esterase Urine WBC (Auto) Urine RBC (Auto) Blood Type O POSITIVE Antibody Screen NEGATIVE Impressions: Abdomen/Pelvis CT 03/01/20 09:41 IMPRESSION: 1. Cirrhotic liver with multiple heterogeneous masses as described. These could represent regenerating nodules although multifocal hepatoma cannot be excluded. The lesions have increased in size when compared to prior CT dated 05/29/2016. There is a 5.8 cm lesion off the right lobe posteriorly and a 4.7 x 5.2 cm lesion off the right lobe anteriorly near the diaphragm. Numerous smaller lesions are identified. 2. Moderate volume ascites. 3. Splenomegaly 4. Slight thickening of the ascending colonic wall. This is nonspecific and may be secondary to the ascites. This segment of colon with also nondistended with extension weight is findings. Assessment & Plan - Diagnosis (1) Melena Is this a current diagnosis for this admission?: Yes (2) Anemia Qualifiers: Anemia type: iron deficiency Iron deficiency anemia type: chronic blood loss Qualified Code(s): D50.0 - Iron deficiency anemia secondary to blood loss (chronic) Is this a current diagnosis for this admission?: Yes (3) Cirrhosis Qualifiers: Hepatic cirrhosis type: alcoholic cirrhosis Ascites presence: with ascites Qualified Code(s): K70.31 - Alcoholic cirrhosis of liver with ascites Is this a current diagnosis for this admission?: Yes (4) Hypokalemia Is this a current diagnosis for this admission?: Yes (5) Lesion of liver Is this a current diagnosis for this admission?: Yes (6) Ascites Qualifiers: Ascites type: due to alcoholic cirrhosis Qualified Code(s): K70.31 - Alcoholic cirrhosis of liver with ascites Is this a current diagnosis for this admission?: Yes (7) Hematemesis Is this a current diagnosis for this admission?: Yes - Time Time Spent: 30 to 50 Minutes - Inpatient Certification Medical Necessity: Need Close Monitoring Due to Risk of Patient Decompensation, Need For IV Fluids, Need for Surgery - Endoscopy - Plan Summary Plan Summary: 59-year-old male with known history of cirrhosis of the liver with hematoma diagnosed 5 years ago and being followed up at [facility], had a bout of melena about 8 days ago for 4 days associated with hematemesis x2 after drinking a sixpack of beer about 2 weeks ago. He had a CT scan of the abdomen in the ED which showed cirrhosis, ascites and mass lesions in the liver likely due to hepatoma. His hemoglobin is 7.2. He claims his hemoglobin in the recent past was about 14. He is not taking any NSAIDs His abdomen is slightly distended and mildly tender on the distal scar from ventral hernia repair with mesh. Recommendations: Keep n.p.o. from midnight For possible EGD by Dr. Heredia tomorrow in the OR. Monitor H&H
[2020-03-01] MEDS: POTASSI CL 20 MEQ/NS 1L 1,000 ML IV PRN (19:21)
[2020-03-01 20:35] LABS: HEMATOCRIT 20.6 % (37.9-51.0); MEAN CORPUSCULAR HEMOGLOBIN 30.7 pg (27.0-33.4); MEAN CORPUSCULAR HGB CONC 33.5 g/dL (32.0-36.0); MEAN CORPUSCULAR VOLUME 92 fl (80-97); PLATELET COUNT 106 10^3/uL (150-450); RED BLOOD COUNT 2.24 10^6/uL (4.35-5.55); RED CELL DISTRIBUTION WIDTH 19.3 % (11.5-14.0); WHITE BLOOD COUNT 4.8 10^3/uL (4.0-10.5)
[2020-03-01 20:37] LABS: INTERNATIONAL RATION (INR) 1.97; PROTHROMBIN TIME 22.7 SEC (11.4-15.4)
[2020-03-01 20:38] LABS: PARTIAL THROMBOPLASTIN TIME 35.6 SEC (23.5-35.8)
[2020-03-01 20:41] LABS: HEMOGLOBIN 6.9 g/dL (13.5-17.0)
[2020-03-01] MEDS ORDERED: DIPHENHYDRAMINE HCL 25 MG CAPSULE PO PRN (20:52)
[2020-03-01 20:54] LABS: ANION GAP 7 (5-19); BLOOD UREA NITROGEN 25 mg/dL (7-20); CARBON DIOXIDE 35 mmol/L (22-30); CHLORIDE 89 mmol/L (98-107); GLUCOSE 82 mg/dL (75-110)
[2020-03-01 20:58] LABS: POTASSIUM 2.6 mmol/L (3.6-5.0)
[2020-03-01 21:08] LABS: ABSOLUTE LYMPHOCYTES# (MANUAL) 0.4 10^3/uL (0.5-4.7); ABSOLUTE MONOCYTES # (MANUAL) 0.7 10^3/uL (0.1-1.4); BASOPHILS % (MANUAL) 1 % (0-2); EOSINOPHILS % (MANUAL) 3 % (0-6); LYMPHOCYTES % (MANUAL) 8 % (13-45); MONOCYTES % (MANUAL) 14 % (3-13); SEGMENTED NEUTROPHILS % (MAN) 74 % (42-78); TOTAL CELLS COUNTED 100
[2020-03-01 21:09] LABS: ANISOCYTOSIS 2+; PLATELET COMMENT DECREASED
[2020-03-01] MEDS ORDERED: POTASSIUM CHLORIDE 10 MEQ TABLET.ER PO ONE (22:00)
[2020-03-01] MEDS ORDERED: ZOLPIDEM TARTRATE 5 MG TABLET PO SCH (22:00)
[2020-03-01] MEDS ORDERED: (PENDING PHARMACY ID) (Zolpidem Tartrate [Ambien] 10 MG) PO SCH (22:00)
[2020-03-01] MEDS ORDERED: CALCIUM GLUCONATE 1000 MG/10 ML INJ IV ONE (22:30)
[2020-03-02] MEDS: POTASSI CL 20 MEQ/NS 1L 1,000 ML IV PRN ×2 (02:57→11:10)
[2020-03-02 05:19] LABS: HEMATOCRIT 23.4 % (37.9-51.0); HEMOGLOBIN 8.1 g/dL (13.5-17.0); MEAN CORPUSCULAR HEMOGLOBIN 31.1 pg (27.0-33.4); MEAN CORPUSCULAR HGB CONC 34.6 g/dL (32.0-36.0); MEAN CORPUSCULAR VOLUME 90 fl (80-97); PLATELET COUNT 103 10^3/uL (150-450); RED CELL DISTRIBUTION WIDTH 17.6 % (11.5-14.0); WHITE BLOOD COUNT 5.4 10^3/uL (4.0-10.5)
[2020-03-02 05:21] LABS: INTERNATIONAL RATION (INR) 2.02; PROTHROMBIN TIME 23.2 SEC (11.4-15.4)
[2020-03-02 05:31] LABS: ALBUMIN 2.4 g/dL (3.5-5.0); ALKALINE PHOSPHATASE 95 U/L (38-126); ANION GAP 5 (5-19); ASPARTATE AMINO TRANSFERASE 101 U/L (17-59); BILIRUBIN,DIRECT 4.6 mg/dL (0.0-0.4); BILIRUBIN,TOTAL 6.8 mg/dL (0.2-1.3); BLOOD UREA NITROGEN 25 mg/dL (7-20); CARBON DIOXIDE 31 mmol/L (22-30); CHLORIDE 97 mmol/L (98-107); GLUCOSE 82 mg/dL (75-110); POTASSIUM 3.1 mmol/L (3.6-5.0); TOTAL PROTEIN 6.8 g/dL (6.3-8.2)
[2020-03-02] MEDS ORDERED: PANTOPRAZOLE SODIUM 40 MG TABLET.DR PO SCH (06:00)
[2020-03-02 06:06] LABS: ABSOLUTE LYMPHOCYTES# (MANUAL) 0.4 10^3/uL (0.5-4.7); ABSOLUTE MONOCYTES # (MANUAL) 0.6 10^3/uL (0.1-1.4); BAND NEUTROPHILS % (MANUAL) 3 % (3-5); BASOPHILS % (MANUAL) 0 % (0-2); EOSINOPHILS % (MANUAL) 7 % (0-6); LYMPHOCYTES % (MANUAL) 7 % (13-45); MONOCYTES % (MANUAL) 12 % (3-13); SEGMENTED NEUTROPHILS % (MAN) 71 % (42-78); TOTAL CELLS COUNTED 100
[2020-03-02 06:07] LABS: ANISOCYTOSIS 1+; POLYCHROMASIA SLIGHT; TOXIC VACUOLATION PRESENT
[2020-03-02 06:08] LABS: HYPOCHROMASIA SLIGHT
[2020-03-02 06:09] LABS: OVALOCYTES SLIGHT; POIKILOCYTOSIS SLIGHT; TEAR DROP CELLS SLIGHT
[2020-03-02 06:10] LABS: PLATELET COMMENT DECREASED
[2020-03-02] MEDS: MAGNESIUM SULFATE 1 GM/D5W 100 ML IV SCH ×2 (07:06→08:38)
--- NOTE | 2020-03-02 07:52 | Progress Note ---
Provider Note Provider Note: Case was discussed at length with Dr. Aaron. Patient has known history of cirrhosis, alcoholism, and sees a hearing aide technician at [facility]. Upper GI bleeding with this constellation of findings suggests variceal bleeding. Surgery service is not equipped to treat variceal bleeding, aside from Eamon tube insertion and transfer. I recommended discussion with [facility] hepatology, for further planning. Surgery will sign off at this time. Please renotify if we can be of assistance.
[2020-03-02] MEDS ORDERED: (PENDING PHARMACY ID) (Fluoxetine Hcl [Fluoxetine Hcl] 10 MG) PO SCH (10:00)
[2020-03-02] MEDS ORDERED: POTASSIUM CHLORIDE 10 MEQ TABLET.ER PO SCH (10:00)
[2020-03-02] MEDS ORDERED: METOPROLOL SUCCINATE 50 MG TAB.SR.24H PO SCH (10:00)
[2020-03-02] MEDS ORDERED: FLUOXETINE HCL 20 MG/5 ML UDCUP PO SCH (10:00)
[2020-03-02 11:56] VITALS: BP 125/71
--- NOTE | 2020-03-04 11:00 | Left Against Medical Advice ---
Against Medical Advice Admission Date/Time: 03/01/20 14:14 Primary Care Provider: PENG TONY DO Date of Patient Emigration: 03/02/20 - Diagnosis: (1) GI bleed Is this a current diagnosis for this admission?: Yes (2) Acute blood loss anemia Is this a current diagnosis for this admission?: Yes (3) Melena Is this a current diagnosis for this admission?: Yes (4) Neoplasm, liver Is this a current diagnosis for this admission?: Yes (5) Ascites Is this a current diagnosis for this admission?: Yes (6) Hyponatremia Is this a current diagnosis for this admission?: Yes (7) Hypocalcemia Is this a current diagnosis for this admission?: Yes (8) Hypokalemia Is this a current diagnosis for this admission?: Yes (9) Acute renal failure Is this a current diagnosis for this admission?: Yes (10) UTI (urinary tract infection) Is this a current diagnosis for this admission?: Yes (11) Cirrhosis Is this a current diagnosis for this admission?: Yes (12) Coagulopathy Is this a current diagnosis for this admission?: Yes - Summary: Summary: Please see Admission and Progress Notes as well. TATUM GASTON is a 59 M, who LEFT AGAINST MEDICAL ADVICE. The Patient was admitted on 03/01/20 14:14. The patient likely has a GI bleed. He has multiple liver tumors that can affect her getting larger. He has alcoholic liver disease and he has exhibited melena. Likely that there are esophageal varices and this may have been the site of bleeding. He did receive 1 unit of packed red blood cells with his hemoglobin at 6.9. His hemoglobin increased to 8.1 on the morning of his emigration. Unfortunately Mr. Gaston was demanding a visit from the physician. I explained to the nurse that it was impossible for me to get there right away due to multiple hospital admissions. I told the nurse that I would try to get there as soon as I could. She called me shortly thereafter stated that the patient left AGAINST MEDICAL ADVICE. He did have an appointment with his physician at [facility] who has been following the liver. Hopefully he will be stable and this matter can be further addressed at his [facility] follow-up.
== END 2020-03-02 14:14 | disposition left against medical advice (07) | DRG 432 ==
LOC: ER 09:03 → EH 14:14 → 4N 15:36
PROVIDERS: ADMIT Hospitalist; ATTEND Hospitalist
PROC: 30233N1 Transfusion of Nonautologous Red Blood Cells into Peripheral Vein, Percutaneous Approach (ICD-10-PCS; principal; 2020-03-01)
DX: K70.31 Alcoholic cirrhosis of liver with ascites (principal); I85.11 Secondary esophageal varices with bleeding; D62 Acute posthemorrhagic anemia; K92.1 Melena; N17.9 Acute kidney failure, unspecified; C22.0 Liver cell carcinoma; E87.1 Hypo-osmolality and hyponatremia; N30.01 Acute cystitis with hematuria; E87.6 Hypokalemia; E83.51 Hypocalcemia; E11.9 Type 2 diabetes mellitus without complications; F10.21 Alcohol dependence, in remission; Z60.2 Problems related to living alone; Z79.899 Other long term (current) drug therapy; Z88.0 Allergy status to penicillin; Z88.8 Allergy status to other drugs, medicaments and biological substances
CPT/HCPCS: 36415; 36430; 74177; 80053; 81001; 83690; 83735; 85025; 85610; 85730; 86850; 86900; 86901; 86920; 87040; 87086; 87088; 87186; 96365; 96375; 99285; J0610; J1956; J2270; J2405; J3475; J3480; J3490; P9016

== ENCOUNTER 2020-03-10 07:40 | Emergency (ER) | payer MEDICARE, MEDICAID ==
--- NOTE | 2020-03-10 08:34 | ER Document Report ---
ED GI/ - General Chief Complaint: Flank Pain Stated Complaint: FLANK PAIN Time Seen by Provider: 03/10/20 08:19 Primary Care Provider: PENG TONY DO [Primary Care Provider] - Follow up as needed Notes: CHIEF COMPLAINT: Requesting paracentesis HPI: 59-year-old alcoholic male with history of cirrhosis that follows with hepatology at [facility] presenting requesting paracentesis feels like he is bloated. Patient states he was admitted to the hospital last week but signed out AGAINST MEDICAL ADVICE because the admitting physician was not fast enough to see him in his room. Denies abdominal pain denies vomiting. Additional history is obtained from the records. ROS: See HPI - all other systems were reviewed and are otherwise negative Constitutional: no fever Eyes: no drainage, no blurred vision ENT: no runny nose, no sore throat Cardiovascular: no chest pain Resp: no SOB, no cough GI: no vomiting, no diarrhea, no abdominal pain, complains of bloating : no dysuria Integumentary: no rash Allergy: no hives Musculoskeletal: no extremity pain or swelling Neurological: no numbness/tingling, no weakness MEDICATIONS: I agree with the patient medications as charted by the RN. ALLERGIES: I agree with the allergies as charted by the RN. PAST MEDICAL HISTORY/PAST SURGICAL HISTORY: Reviewed and agree as charted by RN. SOCIAL HISTORY: Reviewed and agree as charted by RN. FAMILY HISTORY: No significant familial comorbid conditions directly related to patient complaint EXAM: Reviewed vital signs as charted by RN. CONSTITUTIONAL: Alert and oriented and responds appropriately to questions. Well-appearing; well-nourished HEAD: Normocephalic; atraumatic EYES: PERRL; Conjunctivae clear, sclerae non-icteric ENT: normal nose; no rhinorrhea; moist mucous membranes; pharynx without lesions noted, no uvula edema or deviation, no tonsillar hypertrophy, phonation normal NECK: Supple without meningismus; non-tender; no cervical lymphadenopathy, no masses CARD: RRR; no murmurs, no clicks, no rubs, no gallops; symmetric distal pulses RESP: Normal chest excursion without splinting or tachypnea; breath sounds clear and equal bilaterally; no wheezes, no rhonchi, no rales, pulse oximetry 98% on room air not hypoxic ABD/GI: Normal bowel sounds; non-distended; soft, non-tender, no rebound, no guarding; no palpable organomegaly or masses. BACK: The back appears normal and is non-tender to palpation, there is no CVA tenderness EXT: Normal ROM in all joints; non-tender to palpation; no cyanosis, no e ffusions, no edema SKIN: Normal color for age and race; warm; dry; good turgor; no acute lesions noted NEURO: Moves all extremities equally; Motor and sensory function intact PSYCH: The patient's mood and manner are appropriate. Grooming and personal hygiene are appropriate. MDM: 59-year-old alcoholic male who is been here previously for paracentesis was admitted last week for possible GI bleed but signed out AGAINST MEDICAL ADVICE. He has not yet followed up with his mild disabilities teacher at [facility]. Will repeat lab work, obtain ultrasound to evaluate whether patient needs paracentesis. discussed with Dr. Hoff, attending TRAVEL OUTSIDE OF THE [place] IN LAST 30 DAYS: No - Related Data Allergies/Adverse Reactions: zolpidem Allergy (Intermediate, Verified 03/01/20 09:15) Hallucinations Penicillins Allergy (Verified 03/01/20 09:15) Rash Past Medical History - Social History Smoking Status: Unknown if Ever Smoked Frequency of alcohol use: None Drug Abuse: None Family History: CAD, Hypertension - Past Medical History Cardiac Medical History: Denies: Hx Coronary Artery Disease, Hx Heart Attack, Hx Hypertension Pulmonary Medical History: Denies: Hx Asthma, Hx Bronchitis, Hx COPD, Hx Pneumonia Neurological Medical History: Denies: Hx Cerebrovascular Accident, Hx Seizures Endocrine Medical History: Reports: Hx Diabetes Mellitus Type 2 Renal/ Medical History: Denies: Hx Peritoneal Dialysis Malignancy Medical History: Reports Hx Liver Cancer GI Medical History: Reports: Hx Cirrhosis, Hx Hepatitis Musculoskeletal Medical History: Denies Hx Arthritis Psychiatric Medical History: Denies: Hx Depression Infectious Medical History: Reports: Hx Hepatitis Past Surgical History: Reports: Hx Abdominal Surgery - hernia repair, Hx Orthopedic Surgery - left ankle and left hand, Other - Repair of ventral hernia with mesh in June 2017 at [place] - Immunizations Hx Diphtheria, Pertussis, Tetanus Vaccination: No Physical Exam - Vital signs Vitals: Temp Pulse Resp BP Pulse Ox 98.3 F 78 18 136/84 H 99 03/10/20 07:46 03/10/20 07:46 03/10/20 07:46 03/10/20 07:46 03/10/20 07:46 Course - Re-evaluation Re-evalutation: 03/10/20 13:19 I spoke with the epitaxial reactor technician at 1245 this that they would take the patient within 15 minutes as we have been bleeding for his ultrasound. Still not sure that he will definitively need paracentesis they do indicate that if he does they will do it at the time the ultrasound him. His labs do not suggest other acute findings today, pending ultrasound, discharge 03/10/20 13:52 Ultrasound report shows not enough fluid for drainage. Patient's other lab work is stable discharge home to follow-up with his mild disabilities teacher - Vital Signs Vital signs: Temp Pulse Resp BP Pulse Ox 98.3 F 78 18 136/84 H 99 03/10/20 07:46 03/10/20 07:46 03/10/20 07:46 03/10/20 07:46 03/10/20 07:46 - Laboratory Result Diagrams: 03/10/20 08:09 03/10/20 08:09 Laboratory results interpreted by me: 03/10/20 03/10/20 03/10/20 08:09 08:09 08:09 WBC 3.4 L RBC 2.99 L Hgb 9.1 L Hct 27.5 L RDW 21.1 H Plt Count 119 L Seg Neuts % (Manual) 81 H Lymphocytes % (Manual) 8 L Abs Lymphs (Manual) 0.3 L PT 20.6 H Sodium 136.1 L Potassium 3.3 L Glucose 133 H Calcium 8.1 L Total Bilirubin 3.4 H Direct Bilirubin 2.1 H AST 96 H Alkaline Phosphatase 199 H Albumin 2.7 L Lipase 399.0 H Urine Urobilinogen Ur Leukocyte Esterase 03/10/20 09:30 WBC RBC Hgb Hct RDW Plt Count Seg Neuts % (Manual) Lymphocytes % (Manual) Abs Lymphs (Manual) PT Sodium Potassium Glucose Calcium Total Bilirubin Direct Bilirubin AST Alkaline Phosphatase Albumin Lipase Urine Urobilinogen 4.0 H Ur Leukocyte Esterase LARGE H Discharge - Discharge Clinical Impression: Ascites Qualifiers: Ascites type: due to alcoholic cirrhosis Qualified Code(s): K70.31 - Alcoholic cirrhosis of liver with ascites Condition: Stable Disposition: HOME, SELF-CARE Additional Instructions: There was not enough fluid in the abdomen to merit paracentesis today. Follow- up with your mild disabilities teacher or the regular provider that you see for paracentesis outside of the emergency department for further evaluation and treatment. Your lab work has improved since he signed out AGAINST MEDICAL ADVICE last week. If you have worsening symptoms return for reevaluation Referrals: PENG TONY DO [Primary Care Provider] - Follow up as needed
[2020-03-10 08:47] LABS: INTERNATIONAL RATION (INR) 1.75; PROTHROMBIN TIME 20.6 SEC (11.4-15.4)
[2020-03-10 08:55] LABS: HEMATOCRIT 27.5 % (37.9-51.0); HEMOGLOBIN 9.1 g/dL (13.5-17.0); MEAN CORPUSCULAR HEMOGLOBIN 30.3 pg (27.0-33.4); MEAN CORPUSCULAR HGB CONC 32.9 g/dL (32.0-36.0); MEAN CORPUSCULAR VOLUME 92 fl (80-97); PLATELET COUNT 119 10^3/uL (150-450); RED BLOOD COUNT 2.99 10^6/uL (4.35-5.55); RED CELL DISTRIBUTION WIDTH 21.1 % (11.5-14.0); WHITE BLOOD COUNT 3.4 10^3/uL (4.0-10.5)
[2020-03-10 08:56] LABS: ALBUMIN 2.7 g/dL (3.5-5.0); ALKALINE PHOSPHATASE 199 U/L (38-126); ASPARTATE AMINO TRANSFERASE 96 U/L (17-59); BILIRUBIN,DIRECT 2.1 mg/dL (0.0-0.4); BILIRUBIN,TOTAL 3.4 mg/dL (0.2-1.3); BLOOD UREA NITROGEN 15 mg/dL (7-20); CALCIUM 8.1 mg/dL (8.4-10.2); CARBON DIOXIDE 27 mmol/L (22-30); GLUCOSE 133 mg/dL (75-110); POTASSIUM 3.3 mmol/L (3.6-5.0); TOTAL PROTEIN 7.7 g/dL (6.3-8.2)
[2020-03-10 09:01] LABS: ANION GAP 6 (5-19); CHLORIDE 103 mmol/L (98-107)
[2020-03-10 09:34] LABS: ABSOLUTE LYMPHOCYTES# (MANUAL) 0.3 10^3/uL (0.5-4.7); ABSOLUTE MONOCYTES # (MANUAL) 0.2 10^3/uL (0.1-1.4); ANISOCYTOSIS 2+; BASOPHILS % (MANUAL) 0 % (0-2); EOSINOPHILS % (MANUAL) 4 % (0-6); LYMPHOCYTES % (MANUAL) 8 % (13-45); MONOCYTES % (MANUAL) 7 % (3-13); OVALOCYTES SLIGHT; PLATELET COMMENT DECREASED; POIKILOCYTOSIS 1+; POLYCHROMASIA SLIGHT; SEGMENTED NEUTROPHILS % (MAN) 81 % (42-78); TARGET CELLS SLIGHT; TOTAL CELLS COUNTED 100; TOXIC GRANULATION SLIGHT
[2020-03-10 10:00] LABS: APPEARANCE,URINE SLIGHTLY-CLOUDY; BILIRUBIN,URINE NEGATIVE (NEGATIVE); COLOR,URINE AMBER; GLUCOSE, URINE NEGATIVE (NEGATIVE); KETONES,URINE NEGATIVE (NEGATIVE); LEUKOCYTE ESTERASE,URINE LARGE (NEGATIVE); NITRITE,URINE NEGATIVE (NEGATIVE); PROTEIN,URINE NEGATIVE (NEGATIVE); URINE SPECIFIC GRAVITY 1.014
[2020-03-10 13:56] VITALS: BP 142/91
--- NOTE | 2020-03-10 14:02 | RADIOLOGY REPORT (SQ) ---
EXAM DESCRIPTION: U/S ABD PARACENTESIS IMAGES COMPLETED DATE/TIME: 03/10/2020 1:44 pm REASON FOR STUDY: ascites COMPARISON: None. TECHNIQUE: Limited Static and real time panda scale imaging performed of the 4 abdominal quadrants an d the midline. LIMITATIONS: None. FINDINGS: ASCITES: Small volume ascites. Majority of the fluid was adjacent to the bladder and live r. No focal easily accessible fluid collections were identified. OTHER: No other significant finding. IMPRESSION: Small volume ascites. Paracentesis was not performed. TECHNICAL DOCUMENTATION: JOB ID: [id number] 2010 [employer]- All Rights Reserved Reading location - IP/workstation name: [email or web address]
== END 2020-03-10 13:58 | disposition home or self-care (01) ==
LOC: ER 07:40
DX: K70.31 Alcoholic cirrhosis of liver with ascites (principal); E11.9 Type 2 diabetes mellitus without complications; Z85.05 Personal history of malignant neoplasm of liver; Z88.8 Allergy status to other drugs, medicaments and biological substances; Z88.0 Allergy status to penicillin
CPT/HCPCS: 36415; 49083; 80053; 81001; 83690; 85025; 85610; 99284